=== PATIENT | female | born 1945 | race Caucasian/White ===

== ENCOUNTER → 2024-08-06 | Outpatient (CLI) | payer MEDICARE, SELFPAY ==
--- NOTE | 2024-08-06 08:44 | CDU_ITS ---
Reason For Study Reason For Study: Dizziness, visual disturbance Rt. Velocities/BP Lt. Velocities/BP Prox CCA 54.1/8.8 cm/sec. Prox CCA 69.6/11.3 cm/sec. Mid CCA 54.1/7.8 cm/sec. Mid CCA 57/12.6 cm/sec. Dist CCA 38.1/6 cm/sec. Dist CCA 52.2/9.7 cm/sec. Prox ICA 45.8/11.6 cm/sec. Prox ICA 36.5/7.3 cm/sec. Mid ICA 69.4/15.4 cm/sec. Mid ICA 77.5/17.2 cm/sec. Dist ICA 66.9/14.7 cm/sec. Dist ICA 90.8/19.2 cm/sec. Rt. ICA/CCA = 1.28. Lt. ICA/CCA = 1.59. Prox ECA 70.2/6 cm/sec. Prox ECA 80.6/5 cm/sec. Rt. Vert. 42.1/4.7 cm/sec. Lt. Vert. 40.4/7.2 cm/sec. Right Extracranial There is homogeneous, smooth atherosclerotic plaque noted in the right common carotid artery. There is heterogeneous, smooth atherosclerotic plaque noted in the right internal carotid artery. There is intimal thickening but no significant atherosclerotic plaque noted in the right external carotid artery. Antegrade flow is noted in the right vertebral artery. Left Extracranial There is homogeneous, smooth atherosclerotic plaque noted in the left common carotid artery. There is homogeneous, smooth atherosclerotic plaque noted in the left internal carotid artery. There is intimal thickening but no significant atherosclerotic plaque noted in the left external carotid artery. Antegrade flow is noted in the left vertebral artery. Procedure Carotid Duplex [id number]. This is a Carotid Duplex examination using B-mode, color flow and specral Doppler. Exam performed in department. VL/Carotid Duplex Ultrasound Interpretation Summary Mild (<50%) stenosis right extracranial internal carotid. Mild (<50%) stenosis left extracranial internal carotid. Patent and antegrade vertebrals bilaterally. Ordering Physician: Honorio Boyer Referring Physician: Chin Castillo Performed By: Julianna Lopez RVT
== END | disposition home or self-care (01) ==
LOC: CVS 08:43
PROVIDERS: PCP Internal Medicine Infectious Disease; Referring Provider Nurse Practitioner Family; Visit Provider Nurse Practitioner Family
DX: R42 Dizziness and giddiness (principal); R09.89 Other specified symptoms and signs involving the circulatory and respiratory systems; I79.8 Other disorders of arteries, arterioles and capillaries in diseases classified elsewhere
CPT/HCPCS: 93880

== ENCOUNTER → 2025-03-08 | Outpatient (CLI) | payer MEDICARE, SELFPAY ==
--- NOTE | 2025-03-08 08:45 | AAAS_ITS ---
Reason For Study VL/AAA Screening
== END | disposition home or self-care (01) ==
LOC: CVS 08:39
PROVIDERS: PCP Internal Medicine Infectious Disease; Referring Provider Internal Medicine Cardiovascular Disease; Visit Provider Internal Medicine Cardiovascular Disease
DX: I25.10 Atherosclerotic heart disease of native coronary artery without angina pectoris (principal); I48.0 Paroxysmal atrial fibrillation; I34.0 Nonrheumatic mitral (valve) insufficiency; I10 Essential (primary) hypertension; E78.5 Hyperlipidemia, unspecified; Z95.2 Presence of prosthetic heart valve; Z86.79 Personal history of other diseases of the circulatory system
CPT/HCPCS: 76706

== ENCOUNTER → 2025-03-18 | Outpatient (CLI) | payer MEDICARE, SELFPAY ==
--- NOTE | 2025-03-18 10:53 | ECHOTEE_ITS ---
Reason For Study Reason For Study: CAD/ASHD Medication JAZMINE probe 6VT-D (SN [id number]) passed with minimal difficulty. No complications were noted. Cetacaine Topical Bouton given X3 orally. Versed 2 mg given slow IVP. Fentanyl 50 mcg given slow IVP. Performed a rapid injection of agitated mix of 9 cc saline and 1cc air to assess for atrial septal defect. Left Ventricle Normal left ventricle. Left ventricular systolic function is normal. The left ventricular ejection fraction is 60 %. No regional wall motion abnormalities noted. Right Ventricle Normal RV size. Normal systolic function. Atria Bubble contrast study is negative for PFO/ASD. Normal left atrium. Left atrial appendage is completely closed. Normal right atrium. Mitral Valve Normal mitral valve. Mild (1+) eccentric mitral valve insufficiency. Tricuspid Valve Normal tricuspid valve. Aortic Valve Normal aortic valve. Trisinus/trileaflet aortic valve. Pulmonic Valve Normal pulmonic valve. Vessels Normal aortic root. Normal arch. The pulmonary artery is normal size. Pulmonary venous flow normal. ECHO/Echo Transesophageal (JAZMINE) Interpretation Summary Normal left ventricle. Bubble contrast study is negative for PFO/ASD. Left ventricular systolic function is normal. The left ventricular ejection fraction is 60 %. Left atrial appendage is completely closed. Ordering Physician: Terence Lombardi Referring Physician: Terence Lombardi Performed By: Juaquin Hagen RCS
== END | disposition home or self-care (01) ==
PROVIDERS: PCP Internal Medicine Infectious Disease; Referring Provider Internal Medicine Cardiovascular Disease; Visit Provider Internal Medicine Cardiovascular Disease
DX: I48.0 Paroxysmal atrial fibrillation (principal); I25.10 Atherosclerotic heart disease of native coronary artery without angina pectoris; I10 Essential (primary) hypertension; I34.0 Nonrheumatic mitral (valve) insufficiency; E78.5 Hyperlipidemia, unspecified; Z86.79 Personal history of other diseases of the circulatory system; Z95.2 Presence of prosthetic heart valve
CPT/HCPCS: 93312; 93320; 93325; A4216